=== PATIENT | male | born 1965 | race Caucasian/White ===

== ENCOUNTER 2024-08-13 11:38 | Inpatient (IN) | payer OTHER ==
[~2024-08-13] VITALS: Ht 182.9 cm; Wt 137.0 kg
[2024-08-13] VITALS (52 sets, daily range): BP systolic 71–154; BP diastolic 44–117
[2024-08-13] MEDS ORDERED: dilTIAZem HCL 50 MG/10 ML SDV IV ONE (11:45)
[2024-08-13] MEDS ORDERED: DILTIAZEM HCL 125 MG in SODIUM CHLORIDE 0.9% 100 ML IV ONE (11:45)
[2024-08-13] MEDS ORDERED: SODIUM CHLORIDE 0.9% 1,000 ML IV ONE ×3 (11:50→14:45)
[2024-08-13] MEDS ORDERED: NOREPINEPHRINE BITARTRATE 4 MG in DEXTROSE 5% 250 ML IV ONE (11:50)
[2024-08-13] MEDS ORDERED: SODIUM CHLORIDE 0.9% 250 ML IV PRN ×4 (11:50→13:10)
[2024-08-13] MEDS ORDERED: NOREPINEPHRINE BITARTRATE 4 MG in SODIUM CHLORIDE 0.9% 250 ML IV ONE (12:05)
--- NOTE | 2024-08-13 12:07 | NUR ---
Pt arrived to room 6 via [facility], transported stretcher to stretcher. Pt confused, R sided weakness, R sided facial droop. In afib RVR. Physician notified and at bedside.
--- NOTE | 2024-08-13 12:08 | NUR ---
1158 20 mg cardizem bolus administered. 1158, IV fluid bolus started 1203 cardizem drip started, 10 mg/hr
[2024-08-13 12:20] LABS: BASO% 0.5 % (0-3); EOS% 0.1 % (0-8); HEMATOCRIT 46.9 % (39.0-50.0); HEMOGLOBIN 15.8 g/dl (14.0-18.0); IMMATURE GRANULOCYTES 0.1 % (0.0-5.0); LYMPH% 14.1 % (15-41); MEAN CELL VOLUME 92.9 fL CALC (80.0-100.0); MEAN CORPUSCULAR HGB 31.3 pG CALC (26.0-32.0); MEAN CORPUSCULAR HGB CONC 33.7 g/dL CAL (32.0-36.0); MONO% 7.4 % (2-13); NEUT# 8.39 thou/uL (1.82-7.42); NEUT% 77.8 % (42-76); RED BLOOD COUNT 5.05 mill/uL (4.70-6.10); RED CELL DISTRI WIDTH 13.1 % (11.5-15.5)
[2024-08-13 12:30] LABS: ALBUMIN 4.3 g/dL (3.2-5.0); BILIRUBIN, TOTAL 1.7 mg/dL (0.2-1.3); CHOLESTEROL HDL RATIO 3.1 (<4.4 (CALC)); POTASSIUM 3.8 mmol/l (3.5-5.1); TOTAL PROTEIN 7.2 g/dL (6.3-8.2)
[2024-08-13] MEDS ORDERED: amioDARONE HCl 450 MG in SODIUM CHLORIDE 250 ML IV ONE (13:10)
--- NOTE | 2024-08-13 13:10 | NUR ---
Patient's HR unaffected by Cardizem drip, physician notified. Amiodarone bolus and drip ordered. 1317, initiated amiodarone bolus. 1327, pt converted out of afib rvr. physician notified 1334. amiodarone drip initiated.
--- NOTE | 2024-08-13 13:40 | NUR ---
1306, initiated levophed at 8 mcg/min 1319, increased levophed to 10 cg/min 1337, decreased levophed to 8 mcg/min
--- NOTE | 2024-08-13 13:42 | NUR ---
1218, cardizem drip increased to 15 mg/hr
--- NOTE | 2024-08-13 14:23 | NUR ---
Patient resting in stretcher. VS's stable.
[2024-08-13] MEDS ORDERED: ACETAMINOPHEN 325 MG/TAB PO PRN (15:05)
[2024-08-13] MEDS ORDERED: SODIUM CHLORIDE 0.9% 1,000 ML IV PRN ×2 (15:05→21:15)
[2024-08-13] MEDS ORDERED: MAGNESIUM HYDROXIDE 30 ML UDC PO PRN (15:05)
[2024-08-13] MEDS ORDERED: DEXTROSE 250 ML IV PRN (15:10)
--- NOTE | 2024-08-13 15:24 | NUR ---
Pt to be admitted. Receiving 3rd liter of NS.
[2024-08-13 15:27] LABS: URINE BILIRUBIN - DIPSTICK Negative (NEGATIVE); URINE BLOOD DIPSTICK Moderate (NEGATIVE); URINE GLUCOSE - DIPSTICK Negative (NEGATIVE); URINE KETONE Trace mg/dL (NEGATIVE); URINE LEUK ESTERASE Negative (NEGATIVE); URINE NITRITE - DIPSTICK Negative (Negative); URINE PH 5.5 (4.5-8.0); URINE PROTEIN - DIPSTICK 30 mg/dL (NEG-TRACE); URINE UROBILINOGEN - DIPSTICK 0.2 E.U./dL (0.2)
[2024-08-13 15:30] LABS: URINE COLOR Yellow
[2024-08-13 15:32] LABS: URINE SQUAMOUS EPITHELIAL CELL FEW EPI/hpf (0-FEW)
[2024-08-13] MEDS ORDERED: ENOXAPARIN SODIUM 40 MG/0.4 ML SYR SC SCH ×2 (16:00)
[2024-08-13] MEDS ORDERED: ENOXAPARIN SODIUM 100 MG/ML SYR SC SCH (16:00)
[2024-08-13] MEDS ORDERED: PANTOPRAZOLE SODIUM Sesquihydr 40 MG/TAB PO SCH (16:00)
--- NOTE | 2024-08-13 16:00 | NUR ---
Gave report to LEI Rutledge.
[2024-08-13] MEDS ORDERED: amioDARONE HCl 450 MG in SODIUM CHLORIDE 250 ML IV PRN (17:10)
--- NOTE | 2024-08-13 17:30 | NUR ---
REPORT RECEIVED FROM ED NURSE. PT WAS FOUND AFTER A WELLNESS CHECK CALLED IN BY CO-WORKER. PT'S LAST KNOWN WELL AT LEAST 2 DAYS AGO. PT PRESENTS WITH STROKE-LIKE SYMPTOMS. NIH OF 9 FOR DROWSINESS, SLURRED SPEECH, AND RIGHT SIDED WEAKNESS WITH FACIAL DROOP. PT IS ORIENTED TO PERSON ONLY. DROWSY BUT RESPONSIVE. HEART SOUNDS S1S2; PT IS IN NSR AT THIS TIME ON AMIODARONE GTT. WHEN PT ARRIVED TO ED HE WAS IN AFIB RVR; THIS IS NEW ONSET. LUNGS CLEAR UPPER, COARSE LOWER. PT IS ON RA; NO COUGH NOTED. PT DOES APPEAR TO HAVE SOME LABORED BREATHING, BUT IS NOT IN ANY DISTRESS. O2 SAT REMAINS 95% OR BETTER. BS ACTIVE. ABDOMEN DISTENDED,SOFT. PT HAS CATHETER TO VOID; IS CONTINUALLY SAYING HE NEEDS TO GO TO THE BATHRROM AND IS CONTINUALLY REMINDED THAT HE HAS A CATHETER. PULSES WEAK ALL EXTREMETIES. SKIN W/D; SCRATCHES NOTED TO LEFT KNEE AND FOOT. AFEBRILE. CALL LIGHT IN REACH. VSS AT THIS TIME. PT HAS CENTRAL LINE, LIJ, WELL 20G IN LAC.
--- NOTE | 2024-08-13 18:25 | NUR ---
SPOKE WITH DR. MUIR ON THE PHONE. ORDERS RECEIVED TO START CIWA PROTOCOL, GIVE DOSE OF ATIVAN DUE TO RESTLESSNESS, AND ORDER NICOTENE PATCH.
--- NOTE | 2024-08-13 18:48 | NUR ---
PT RIPPED OUT CENTRAL LINE BUT KEEPS SAYING HE DID NOT. CATHETER TIP INTACT; SITE NOT BLEEDING ANYMORE. DR. MUIR NOTIFIED. ORDERS RECEIVED FOR RESTRAINTS AND NEW CENTRAL LINE. DR. ALBERTO AT BEDSIDE TO PLACE LINE. PT CONTINUES TO BE UNCOOPERATIVE.
--- NOTE | 2024-08-13 20:00 | NUR ---
Report received from day shift nurse. ER doctor at bedside on shift change to place a central line. RN help calming down the patient and holding him stiil. Central line place LIJ. Placement comfirm with xray. Patient alert to self only. Attempting to pull lines, oxygen nasal cannulam and bell. Soft THAIS wrist restraint in place. Patient being monitored on telemetry. Reasurance given. Lights dimmed.
[2024-08-13] MEDS ORDERED: cloNIDine HCL 0.1 MG/TAB PO PRN (21:15)
[2024-08-13] MEDS ORDERED: chlordiazePOXIDE HCL 25 MG CAP PO PRN (21:15)
[2024-08-13] MEDS ORDERED: LORazepam 2 MG/ML IV PRN (21:15)
--- NOTE | 2024-08-13 21:40 | NUR ---
CIWA score of 29. RN attempted to give Librium PO as ordered. Patient chocked and had a wet cough. Pill swallowed. Will keep patient NPO throughout the rest of the shift pending speech eval in the morning
--- NOTE | 2024-08-13 22:01 | NUR ---
Patient CIWA score 29. PRN medications given. Patient is now sleeping. VS within parameters
[2024-08-14] VITALS (22 sets, daily range): BP systolic 102–167; BP diastolic 52–93
--- NOTE | 2024-08-14 | NUR ---
Patient sleeping. Plaza emptied. Restrains check. Hands are warm. Pulse present THAIS. Patient repositioned with pillow. VS within parameters
--- NOTE | 2024-08-14 02:00 | NUR ---
Patient awake. Confused. Reoriented by RN to situation and location. Plaza empited. Telemetry leads fixed.
--- NOTE | 2024-08-14 03:44 | NUR ---
Patient awake and confuse. Pulling out lines such as quality assurance monitor body, IV, and oxygen NC. Patient choked earlier on a PO pill. Ativan given at this time instead
--- NOTE | 2024-08-14 04:30 | NUR ---
Patient sleeping. VS within parameters. AM Labs drawn from midline.
[2024-08-14 05:58] LABS: MEAN CELL VOLUME 96.8 fL CALC (80.0-100.0); MEAN CORPUSCULAR HGB 31.6 pG CALC (26.0-32.0); MEAN CORPUSCULAR HGB CONC 32.7 g/dL CAL (32.0-36.0); RED BLOOD COUNT 3.76 mill/uL (4.70-6.10); RED CELL DISTRI WIDTH 13.2 % (11.5-15.5)
[2024-08-14 06:07] LABS: ALKALINE PHOSPHATASE 70 u/l (38-126); ANION GAP 9 (6-22 (CALC)); BILIRUBIN, TOTAL 1.5 mg/dL (0.2-1.3); BUN 18 mg/dL (9-20); BUN/CREATININE RATIO 20 (12-20 (CALC)); CARBON DIOXIDE 27 mmol/l (22-30); CHLORIDE 110 mmol/l (95-108); CREATININE 0.9 mg/dL (0.7-1.3); ESTIMATED GFR 98 ML/MIN (>=90 (CALC)); HEMATOCRIT 36.4 % (39.0-50.0); HEMOGLOBIN 11.9 g/dl (14.0-18.0); MAGNESIUM 2.2 mg/dL (1.6-2.3); POTASSIUM 3.6 mmol/l (3.5-5.1); SGOT/AST 214 u/l (17-59); SODIUM 142 mmol/l (137-146)
[2024-08-14 06:14] LABS: ALBUMIN 2.9 g/dL (3.2-5.0); CPK > 3200 u/l (55-170); TOTAL PROTEIN 5.2 g/dL (6.3-8.2)
--- NOTE | 2024-08-14 07:12 | NUR ---
REPORT RECEIVED FROM NIGHT NURSE. PT AWOKEN FOR ASSESSMENT. ORIENTED TO PERSON AND TIME ONLY. PT REORIENTED TO PLACE AND SITUATION. SCLERA OF EYES SLIGHTLY JAUNDICED. PERRLA. LUNG SOUNDS WHEEZING UPPER, COARSE MIDDLE/LOWER LOBES. PT IS ON RA SATTING 95%. SLIGHTLY TACHYPNEIC WITH RR OF 24-26; SLIGHT USE OF ABDOMINAL MUSCLES. HEART SOUNDS S1S2; NSR ON MONITOR. BS ACTIVE; ABDOMEN DISTENDED/SOFT/NON-TENDER. PULSES STRONG UPPER, WEAK LOWER EXTREMETIES. PT REMAINS IN RESTRAINTS DUE TO AGITATION AND INABILITY TO FOLLOW COMMANDS AND LEAVE MONITORING EQUIPMENT/IV ALONE. CIRCULATION GOOD; RESTRAINTS REMOVED FOR ROM AND RE-APPLIED. AFEBRILE. SKIN W/D; SMALL SCRATCHES NOTED TO LEFT KNEE AND FOOT; CLOSED. CIWA SCORE OF 6. VSS AT THIS TIME.
--- NOTE | 2024-08-14 08:15 | NUR ---
TELE NEUROLOGY ON TO SEE PT. ORDERS PLACED FOR ANOTHER ATTEMPT AT MRI AND CT SCAN IF MRI UNABLE TO COMPLETE.
--- NOTE | 2024-08-14 08:24 | NUR ---
PT AT BEDSIDE TO WORK WITH PT.
--- NOTE | 2024-08-14 08:39 | NUR ---
ot at bedside to work with pt.
[2024-08-14] MEDS ORDERED: [UNRECOGNIZED DRUG - OTHER] IV SCH (09:00)
[2024-08-14] MEDS ORDERED: SODIUM CHLORIDE IV SCH (09:00)
[2024-08-14] MEDS ORDERED: THIAMINE HCL 100 MG,MULTIPLE VITAMIN 10 ML in DEXTROSE 5% / 0.9% NACL 1,000 ML IV SCH (09:00)
[2024-08-14] MEDS ORDERED: THIAMINE HCL 100 MG IV SCH (09:00)
--- NOTE | 2024-08-14 09:31 | NUR ---
SPOKE WITH PT'S BROTHER, SHARYN, SISTER, GREG, AND MOTHER, SEAMUS. UPDATED ALL ON PT STATUS. MRI SCREENING COMPLETED WITH ASSISTANCE OF SISTER AND VERBAL CONSENT FROM SISTER RECEIVED FOR MRI.
[2024-08-14] MEDS ORDERED: BAYER ASPIRIN E81 MG PO (09:47)
[2024-08-14] MEDS ORDERED: LIPITOR80 M1 PO (09:47)
[2024-08-14] MEDS ORDERED: TOPROL XL25 M1 PO (09:48)
[2024-08-14] MEDS ORDERED: NICOTINE POL MT (09:49)
[2024-08-14] MEDS ORDERED: LYRICA50 MG PO (09:50)
[2024-08-14] MEDS ORDERED: IMITREX50 MG PO (09:51)
[2024-08-14] MEDS ORDERED: TIZANIDINE2 MG PO (09:54)
--- NOTE | 2024-08-14 11:15 | NUR ---
PT BACK FROM MRI. TOLERATED WELL. REPOSITIONED IN BED. ROM PERFORMED. VSS.
--- NOTE | 2024-08-14 13:00 | NUR ---
NO CHANGES TO PT STATUS. PT RESTING IN BED. VSS.
--- NOTE | 2024-08-14 14:30 | NUR ---
REPORT GIVEN TO LEI HERNANDEZ.
--- NOTE | 2024-08-14 15:06 | NUR ---
TAKING OVER CARE OF PT. PT IS SLEEPY, ORIENTED TO SELF, , REPORTS CURRENT YEAR "1995" NIH=9 FOR RIGHT FACIAL DROOP, UNABLE TO HOLD RIGHT ARM AGAINST GRAVITY, NO EFFORT WITH RIGHT LEG, PT'S SPEECH SOUNDS GARBLES, RESPIRATIONS ARE EVEN AND UNLABORED ON 2L O2, RONCHI NOTED TO BILATERAL LOWER LOBES, WHEEZNG NOTED TO BILATERAL UPPER LOBES. BOWEL SOUNDS ARE HYPOACTIVE BUT PRESENT THROUGHOUT, PEDAL PULSES ARE PALPABLE TO TOUCH, PT DENIES PAIN AT THIS TIME.
--- NOTE | 2024-08-14 16:00 | NUR ---
pt pulling at restraints, pulled tele leads off, asking when he can "get out of here". re-adjusted pt's restraints, provided pt with the prn ativan. eloisa currently at a 6.
--- NOTE | 2024-08-14 18:26 | NUR ---
PT ASKING FOR A DRINK, ASKING TO HAVE THE RESTRAINTS REMOVED SO HE CAN "DRINK SOME WATER"
--- NOTE | 2024-08-14 19:45 | NUR ---
Report received from [facility] nurse. Patient awake. Slurred speech. Patient alert and oriented to self only. Patient ask to have restraints removed so he "can get out of here". Patient oriented by this RN. Patient request water. Patient NPO pending speech eval. Restraints security to the side of the bed. VS within parameters.
--- NOTE | 2024-08-14 19:54 | NUR ---
Patient received from [facility] nurse. Patient awake. Slurred speech. Patient only knows name and date of . Patient ask Rn to heva restraints removed so he can "get out of here". RN oriented patient to situation. Patient requested water. Patient failed bedside swallow eval. Speech eval pending. RN offered mouth swabs. Patient agreed. Restraints are secure to the side of the bed. VS within parameters
--- NOTE | 2024-08-14 22:14 | NUR ---
Patient agitated. Attempting to pull lines. Confuse. Yelling to get restraints off. CIWA = 13. Patient medicated.
--- NOTE | 2024-08-14 23:30 | NUR ---
Patient respiratory rate 32 sustained and using accessory muscles. Lung sounds wheezing upper lobes. Coarse lower lobes. RT at bedside suggest ABG. ABG ordered. Results within normal parameters
[2024-08-15] VITALS (35 sets, daily range): BP systolic 140–180; BP diastolic 62–95
--- NOTE | 2024-08-15 01:43 | NUR ---
Patient pulled telemetry cords. RN and BOTTLE TESTER at bedside fixed the leads, repositioned the patient to the left side.
--- NOTE | 2024-08-15 03:15 | NUR ---
Patient threw blankes on the floor and pulled telemetry cord. RN gave to patient new blankets and fixed tele leads. No changes in reassessment
--- NOTE | 2024-08-15 04:51 | NUR ---
RN and MONITOR TECH provided full bed bath, oral care, hair wash, change of linens, socks. Patient repositioned. Plaza emptied. No change in reasessment.
[2024-08-15 05:44] LABS: HEMATOCRIT 35.1 % (39.0-50.0); HEMOGLOBIN 11.6 g/dl (14.0-18.0); MEAN CELL VOLUME 94.4 fL CALC (80.0-100.0); MEAN CORPUSCULAR HGB 31.2 pG CALC (26.0-32.0); RED BLOOD COUNT 3.72 mill/uL (4.70-6.10); RED CELL DISTRI WIDTH 12.8 % (11.5-15.5)
[2024-08-15 05:58] LABS: ALBUMIN 2.9 g/dL (3.2-5.0); BILIRUBIN, TOTAL 1.2 mg/dL (0.2-1.3); CREATININE 0.8 mg/dL (0.7-1.3); MAGNESIUM 2.1 mg/dL (1.6-2.3); POTASSIUM 3.8 mmol/l (3.5-5.1); TOTAL PROTEIN 5.3 g/dL (6.3-8.2)
--- NOTE | 2024-08-15 06:38 | NUR ---
Patient is sleeping. No changes in reassessment
--- NOTE | 2024-08-15 07:36 | NUR ---
PT SLEEPY BUT WAKES TO VERBAL STIMULATION, ORIENTED TO SELF, CURRENT MO/YEAR,/STATE. RESPIRATIONS ARE EVEN AND UNLABORED ON 2L, RIGHT LOWER LUNG CLEAR, LEFT LOWER LUNG COURSE, SLIGHT WHEEZING NOTED TO BILATERAL UPPER LUNGS, BOWEL SOUNDS ACTIVE THROUGHOUT, PEDAL PULSES PALPABLE TO TOUCH, PT DENIES PAIN AT THIS TIME. ATTEMPTED TO REMOVE RESTRAINTS BUT PT STARTED PULLING AT LINES AND REACHING FOR SLOAN, PLACED RESTRAINTS BACK ON.
--- NOTE | 2024-08-15 09:20 | NUR ---
NEURO AT BEDSIDE WITH PATIENT VIA [facility].
--- NOTE | 2024-08-15 11:15 | NUR ---
PT OFF UNIT VIA STAFF/NURSE TRANSPORT FOR MRI.
--- NOTE | 2024-08-15 12:37 | NUR ---
Pt returned to unit from MRI. Pt did not fallow directions or stay still for MRI despite multiple attempts.
--- NOTE | 2024-08-15 13:05 | NUR ---
PT OFF UNIT VIA STREACHER, NURSE/STAFF TRANSPORT FOR MRI.
--- NOTE | 2024-08-15 14:34 | NUR ---
NOTIFIED DR NEWMAN THAT PT'S MRI RESULTS ARE IN.
--- NOTE | 2024-08-15 16:40 | NUR ---
ATTEMPTED TO REMOVE PT RESTRIANTS. ONCE THE CUFF WAS REMOVED PT PULLED OF NC FOR O2 AND ATTEMPTED TO PULL ON SLOAN. REMINDED PT HE CANNOT PULL ON HIS SLOAN BUT PT CONTUINED TO REACH FOR SLOAN CATHETER. REPLACED SOFT WRIST RESTRIANTS.
[2024-08-15] MEDS ORDERED: METOPROLOL SUCCINATE 25 MG/TAB-TOPROL XL PO SCH (17:06)
[2024-08-15] MEDS ORDERED: RIVAROXABAN 15 MG TAB PO SCH (17:30)
--- NOTE | 2024-08-15 17:45 | NUR ---
Performed bedside swallow eval with pt. Pt tolerated small sips of water. provided pt teaspoon of applesauce, pt tolerated applesauce with small sips of water to wash it down.
--- NOTE | 2024-08-15 17:51 | NUR ---
provided pt with ordered po medications with applesauce followed by small sips of water. Pt tolerated with no coughing or complaints.
--- NOTE | 2024-08-15 18:15 | NUR ---
Provided pt with verbal education on not pulling at heart monitor, iv line, bell. Removed soft wrist restraintsto assess pt tolerance.
--- NOTE | 2024-08-15 19:03 | NUR ---
Report receive from dayswvt nurse. Patient restng comfortably in bed watching TV. Patient is calm and cooporative. Call light within reach
--- NOTE | 2024-08-15 20:00 | NUR ---
Patient has new PO meds. Bedside swallow test perform with thick liquid. Patient able to swallow without problems. No coughin, choking, or voice changes noted. PO meds given on apple sauce
[2024-08-15] MEDS ORDERED: PREGABALIN 50 MG/CAP PO SCH (21:00)
--- NOTE | 2024-08-15 22:00 | NUR ---
Patient becoming more and more agitated. Pulling telemetry lines and midline dressing. Restraints extension reduced. RN attempted to reorient patient. Patient repositioned in bed. Patient reports being comfortable.
[2024-08-15] MEDS ORDERED: ONDANSETRON HCl 4 MG/2 ML SDV IV PRN (23:20)
[2024-08-16] VITALS (25 sets, daily range): BP systolic 110–155; BP diastolic 54–100
--- NOTE | 2024-08-16 | NUR ---
Patient level of agitation decreased post medication. Patient sleeping. No change in reassessment
--- NOTE | 2024-08-16 02:00 | NUR ---
Patient awake watching tv. No signs of distress. VS within parameters. No changes in reassessment
--- NOTE | 2024-08-16 04:10 | NUR ---
Patient heart rate 160s sustained. Dr Bee paged. Orders for cardizem drip no bolus. stat EKG and troponin. Order faxed to [facility]
--- NOTE | 2024-08-16 04:44 | NUR ---
Patient heart rate back to sinus 66. MD notified. Orders to hold the drip received
[2024-08-16] MEDS ORDERED: DILTIAZEM HCL 125 MG in SODIUM CHLORIDE 0.9% 100 ML IV PRN (04:55)
[2024-08-16 05:37] LABS: BASO% 0.7 % (0-3); EOS% 2.8 % (0-8); HEMATOCRIT 34.4 % (39.0-50.0); HEMOGLOBIN 11.6 g/dl (14.0-18.0); IMMATURE GRANULOCYTES 0.6 % (0.0-5.0); LYMPH% 19.9 % (15-41); MEAN CORPUSCULAR HGB 31.7 pG CALC (26.0-32.0); MEAN CORPUSCULAR HGB CONC 33.7 g/dL CAL (32.0-36.0); MONO% 7.3 % (2-13); NEUT# 4.82 thou/uL (1.82-7.42); NEUT% 68.7 % (42-76); RED BLOOD COUNT 3.66 mill/uL (4.70-6.10); RED CELL DISTRI WIDTH 12.8 % (11.5-15.5)
[2024-08-16 05:46] LABS: ALBUMIN 2.9 g/dL (3.2-5.0); BILIRUBIN, TOTAL 1.1 mg/dL (0.2-1.3); CREATININE 0.7 mg/dL (0.7-1.3); POTASSIUM 3.6 mmol/l (3.5-5.1); TOTAL PROTEIN 5.3 g/dL (6.3-8.2)
[2024-08-16] MEDS ORDERED: FUROSEMIDE 40 MG/4 ML SDV IV SCH (09:30)
--- NOTE | 2024-08-16 10:02 | NUR ---
CALLED TRANSFER [facility] FOR [facility] AT [phone] SPOKE TO KEARA WAS TOLD TO FAX FACESHEET AND H&P.
[2024-08-16] MEDS ORDERED: THIAMINE HCL 100 MG/ML 2ML VIAL ONE (10:17)
--- NOTE | 2024-08-16 11:02 | NUR ---
[facility] CALLED WITH UPDATE WAITING TO HEAR BACK FROM INSURANCE COMPANY FOR APPROVAL DUE TO IT BEING EMERGENT AND HAVING [employer].
--- NOTE | 2024-08-16 11:45 | NUR ---
Late entry for 0700: Recieved report from hourly shift manager nurse. Patient is resting in bed. CIWA score = 0. NIH score = 9. Patient is alert and knows name and . Weakness noted to RUE and slurred speech. Will continue to monitor. Late entry for 0900: Neurologist in to see patient via monitor. New orders for STAT Neurosurgeon and to transfer to [facility]. Primary Dimple Bee notified. Patient continues drowsy with no change since last assessment with BUE soft restraints in place, tolerating well.
--- NOTE | 2024-08-16 11:51 | NUR ---
Late entry for 1100: Patient sleeping. No changes or signs or symptoms of distress.
--- NOTE | 2024-08-16 12:25 | NUR ---
KEARA FROM [facility] CALLED BACK AND GAVE ACCEPTANCE DOCTOR WHICH IS DR. DANNY MONTGOMERY AND ROOM NUMBER FOR TRANSFER WHICH IS [id number] AND NURSE TO NURSE REPORT WHICH IS [phone].
--- NOTE | 2024-08-16 12:30 | NUR ---
CALLED [facility] TRANSF[facility] AT SPOKE TO SHAN ABOUT TO TRANSFER FROM ICU BED 1 HERE TO [facility] ROOM 587A. GAVE ME A DIRECTOR OF STRATEGIC SALES TIME OF 1300.
--- NOTE | 2024-08-16 13:31 | NUR ---
Late entry for 1315: Patient was transferred via stretcher to [facility]. Report given to kayla ODOM.
== END 2024-08-16 13:15 | disposition short-term general hospital (02) | DRG 552 ==
LOC: ED 11:38 → ED-I 12:05 → ED 15:15 → ED-I 15:16 → ICU 15:16
PROVIDERS: Family Medicine; ADMIT Internal Medicine; ATTEND Internal Medicine
PROC: 0T9B70Z Drainage of Bladder with Drainage Device, Via Natural or Artificial Opening (ICD-10-PCS; principal; 2024-08-13)
PROC: 02HV33Z Insertion of Infusion Device into Superior Vena Cava, Percutaneous Approach (ICD-10-PCS; 2024-08-13)
PROC: 3E043XZ Introduction of Vasopressor into Central Vein, Percutaneous Approach (ICD-10-PCS; 2024-08-13)
PROC: 02HV33Z Insertion of Infusion Device into Superior Vena Cava, Percutaneous Approach (ICD-10-PCS; 2024-08-13)
DX: M50.021 Cervical disc disorder at C4-C5 level with myelopathy (principal); M62.82 Rhabdomyolysis; G93.40 Encephalopathy, unspecified; I48.91 Unspecified atrial fibrillation; R74.01 Elevation of levels of liver transaminase levels; I10 Essential (primary) hypertension; I25.10 Atherosclerotic heart disease of native coronary artery without angina pectoris; I25.2 Old myocardial infarction; S00.03XA Contusion of scalp, initial encounter; X58.XXXA Exposure to other specified factors, initial encounter; F17.210 Nicotine dependence, cigarettes, uncomplicated; F10.20 Alcohol dependence, uncomplicated; Z78.1 Physical restraint status; Z95.5 Presence of coronary angioplasty implant and graft; Z20.822 Contact with and (suspected) exposure to COVID-19
CPT/HCPCS: J0282; J1650; J1940; J2060; J2405; J3411; Q9967

== ENCOUNTER 2024-08-30 16:30 | Inpatient (IN) | payer OTHER ==
[2024-08-30] VITALS (14 sets, daily range): BP systolic 106–154; BP diastolic 50–91
[~2024-08-30] VITALS: Ht 182.9 cm; Wt 116.0 kg
[~2024-08-30 16:30] MED LIST: BAYER ASPIRIN E81 MG PO; IMITREX50 MG PO; LIPITOR80 M1 PO; LYRICA50 MG PO; NICOTINE POL MT; TIZANIDINE2 MG PO; TOPROL XL25 M1 PO
[2024-08-30] MEDS ORDERED: ACETAMINOPHEN 325 MG/TAB PO PRN (16:55)
[2024-08-30] MEDS ORDERED: Polyethylene Glycol 3350 17 GM/PKT PO PRN (16:55)
[2024-08-30] MEDS ORDERED: ONDANSETRON 4 MG/TAB ODT SL PRN (16:55)
[2024-08-30] MEDS ORDERED: SODIUM CHLORIDE 0.9% 1,000 ML IV PRN (16:55)
[2024-08-30 18:07] LABS: BASO% 1.1 % (0-3); EOS% 2.9 % (0-8); IMMATURE GRANULOCYTES 0.1 % (0.0-5.0); LYMPH% 22.3 % (15-41); MEAN CELL VOLUME 89.9 fL CALC (80.0-100.0); MEAN CORPUSCULAR HGB 30.7 pG CALC (26.0-32.0); MEAN CORPUSCULAR HGB CONC 34.1 g/dL CAL (32.0-36.0); MONO% 6.7 % (2-13); NEUT# 5.7 thou/uL (1.82-7.42); NEUT% 66.9 % (42-76); RED BLOOD COUNT 4.56 mill/uL (4.70-6.10); RED CELL DISTRI WIDTH 12.7 % (11.5-15.5)
[2024-08-30 18:15] LABS: ALBUMIN 3.9 g/dL (3.2-5.0); BILIRUBIN, TOTAL 0.8 mg/dL (0.2-1.3); CREATININE 0.9 mg/dL (0.7-1.3); POTASSIUM 3.9 mmol/l (3.5-5.1); TOTAL PROTEIN 6.7 g/dL (6.3-8.2)
[2024-08-30] MEDS ORDERED: ENOXAPARIN SODIUM 40 MG/0.4 ML SYR SC SCH (21:00)
[2024-08-30] MEDS ORDERED: ATORVASTATIN CALCIUM 40 MG/TAB PO SCH (21:00)
[2024-08-30] MEDS ORDERED: PREGABALIN 50 MG/CAP PO SCH (21:00)
[2024-08-30 21:19] LABS: URINE BLOOD DIPSTICK Small (NEGATIVE); URINE COLOR Yellow; URINE GLUCOSE - DIPSTICK Negative (NEGATIVE); URINE KETONE Trace mg/dL (NEGATIVE); URINE LEUK ESTERASE Small (NEGATIVE); URINE NITRITE - DIPSTICK Negative (Negative); URINE PROTEIN - DIPSTICK 30 mg/dL (NEG-TRACE); URINE SPECIFIC GRAVITY >=1.030
[2024-08-30 21:24] LABS: URINE WBC >100 WBC/hpf (0-5)
[2024-08-30 21:25] LABS: URINE BACTERIA FEW hpf; URINE RBC 0-2 RBC/hpf (0-5)
[2024-08-31 05:20] LABS: EOS% 2.2 % (0-8); HEMATOCRIT 40.5 % (39.0-50.0); HEMOGLOBIN 13.5 g/dl (14.0-18.0); IMMATURE GRANULOCYTES 0.9 % (0.0-5.0); MEAN CELL VOLUME 91.2 fL CALC (80.0-100.0); MEAN CORPUSCULAR HGB 30.4 pG CALC (26.0-32.0); MEAN CORPUSCULAR HGB CONC 33.3 g/dL CAL (32.0-36.0); MONO% 7.6 % (2-13); NEUT% 67.3 % (42-76); RED BLOOD COUNT 4.44 mill/uL (4.70-6.10); RED CELL DISTRI WIDTH 12.7 % (11.5-15.5)
[2024-08-31 05:32] LABS: ALBUMIN 3.4 g/dL (3.2-5.0); CREATININE 0.9 mg/dL (0.7-1.3); MAGNESIUM 2.1 mg/dL (1.6-2.3); POTASSIUM 3.7 mmol/l (3.5-5.1); TOTAL PROTEIN 6.1 g/dL (6.3-8.2)
[2024-08-31 06:45] VITALS: BP 104/71
[2024-08-31] MEDS ORDERED: ASPIRIN EC 81 MG/TAB PO SCH (09:00)
[2024-08-31] MEDS ORDERED: METOPROLOL SUCCINATE 25 MG/TAB-TOPROL XL PO SCH (09:00)
[2024-08-31] MEDS ORDERED: AZITHROMYCIN 500 MG in SODIUM CHLORIDE 0.9% 250 ML IV SCH (15:00)
[2024-08-31 15:07] VITALS: BP 131/61
[2024-08-31] MEDS ORDERED: DOXYCYCLINE HYCLATE 100 MG/CAP PO SCH (16:30)
[2024-08-31 18:47] VITALS: BP 134/72
[2024-09-01 00:03] VITALS: BP 128/72
[2024-09-01 04:00] VITALS: BP 140/72
[2024-09-01 07:26] VITALS: BP 136/66
[2024-09-01 18:14] VITALS: BP 124/55
[2024-09-01 23:36] VITALS: BP 133/57
[2024-09-02] VITALS (8 sets, daily range): BP systolic 102–128; BP diastolic 50–70
[2024-09-02 05:53] LABS: BASO% 0.7 % (0-3); EOS% 3.5 % (0-8); HEMATOCRIT 36.7 % (39.0-50.0); HEMOGLOBIN 12.2 g/dl (14.0-18.0); LYMPH% 30.9 % (15-41); MEAN CELL VOLUME 92.4 fL CALC (80.0-100.0); MEAN CORPUSCULAR HGB 30.7 pG CALC (26.0-32.0); MEAN CORPUSCULAR HGB CONC 33.2 g/dL CAL (32.0-36.0); MONO% 8.4 % (2-13); NEUT# 3.83 thou/uL (1.82-7.42); NEUT% 56.5 % (42-76); RED BLOOD COUNT 3.97 mill/uL (4.70-6.10); RED CELL DISTRI WIDTH 12.7 % (11.5-15.5)
[2024-09-02 06:04] LABS: ALBUMIN 3.2 g/dL (3.2-5.0); BILIRUBIN, TOTAL 1.1 mg/dL (0.2-1.3); CREATININE 0.9 mg/dL (0.7-1.3); MAGNESIUM 1.9 mg/dL (1.6-2.3); POTASSIUM 3.6 mmol/l (3.5-5.1); TOTAL PROTEIN 5.7 g/dL (6.3-8.2)
[2024-09-02] MEDS ORDERED: ALPRAZolam 0.5 MG/TAB PO PRN (12:50)
[2024-09-03] VITALS (9 sets, daily range): BP systolic 112–133; BP diastolic 59–69
[2024-09-03 04:50] LABS: BASO% 1.2 % (0-3); EOS% 3.5 % (0-8); HEMOGLOBIN 12.8 g/dl (14.0-18.0); IMMATURE GRANULOCYTES 0.1 % (0.0-5.0); LYMPH% 31.7 % (15-41); MEAN CELL VOLUME 93.1 fL CALC (80.0-100.0); MEAN CORPUSCULAR HGB 31.4 pG CALC (26.0-32.0); MEAN CORPUSCULAR HGB CONC 33.7 g/dL CAL (32.0-36.0); MONO% 8.7 % (2-13); NEUT# 3.78 thou/uL (1.82-7.42); NEUT% 54.8 % (42-76); RED BLOOD COUNT 4.08 mill/uL (4.70-6.10); RED CELL DISTRI WIDTH 12.6 % (11.5-15.5)
[2024-09-03 05:01] LABS: ALBUMIN 3.1 g/dL (3.2-5.0); BILIRUBIN, TOTAL 0.9 mg/dL (0.2-1.3); CREATININE 0.8 mg/dL (0.7-1.3); MAGNESIUM 1.9 mg/dL (1.6-2.3); POTASSIUM 3.6 mmol/l (3.5-5.1); TOTAL PROTEIN 5.7 g/dL (6.3-8.2)
[2024-09-03] MEDS ORDERED: GADOPICLENOL (VUEWAY) 0.5 MM/ML 3.75MM/7.5ML VIAL IV ONE (10:10)
[2024-09-04 03:54] VITALS: BP 108/63
[2024-09-04 10:41] VITALS: BP 114/72
== END 2024-09-04 14:10 | DRG 65 ==
LOC: ICU 16:30 → MS2 16:30
PROVIDERS: Nurse Practitioner Family; ADMIT Internal Medicine; ATTEND Internal Medicine
DX: I61.5 Nontraumatic intracerebral hemorrhage, intraventricular (principal); G81.91 Hemiplegia, unspecified affecting right dominant side; R47.01 Aphasia; I62.00 Nontraumatic subdural hemorrhage, unspecified; R29.810 Facial weakness; R29.701 NIHSS score 1; I10 Essential (primary) hypertension; I48.91 Unspecified atrial fibrillation; G62.9 Polyneuropathy, unspecified; F10.10 Alcohol abuse, uncomplicated; M47.812 Spondylosis without myelopathy or radiculopathy, cervical region; R33.9 Retention of urine, unspecified; I25.2 Old myocardial infarction; F17.200 Nicotine dependence, unspecified, uncomplicated; Z95.5 Presence of coronary angioplasty implant and graft; Z96.0 Presence of urogenital implants
CPT/HCPCS: J0456; J0696; J1650